=== PATIENT | male | born 1960 | race Two or more races ===

== ENCOUNTER 2024-03-07 15:50 | Emergency (ER) | payer MEDICARE, OTHER ==
[~2024-03-07] VITALS: Ht 175.3 cm; Wt 77.2 kg
[2024-03-07] MEDS ORDERED: SODIUM CHLORIDE 0.9% 1,000 ML IV ONE ×2 (16:15)
[2024-03-07 16:25] VITALS: BP 128/53; PULSE 89; RESP 18; O2SAT 100
[2024-03-07 18:11] LABS: Basophils # (auto) 0 10 ^3/uL (0-0.2); Eosinophils # (auto) 0 10 ^3/uL (0-0.8); Mean Corpuscular Volume 96.2 fL (80.0-100.0); Monocytes # (auto) 0.4 10 ^3/uL (0-1.3)
[2024-03-07 18:12] LABS: Basophils % (auto) 0.2 % (0.0-2.0); Hematocrit 54.2 % (41.0-53.0); Hemoglobin 17.9 g/dL (13.5-17.5); Lymphocytes # (auto) 0.9 10 ^3/uL (0.4-5.4); Lymphocytes % (auto) 6.7 % (10.0-50.0); Mean Corpuscular Hemoglobin 31.7 pg (28.0-32.0); Neutrophils # (auto) 12.6 10 ^3/uL (1.6-8.6); Neutrophils % (auto) 90.1 % (37.0-80.0); Nucleated Red Blood Cells % 0.1 %; Red Blood Cells 5.63 10^6/uL (4.5-5.90); Red Cell Distribution Width 14.2 % (11.8-14.3)
[2024-03-07 18:18] LABS: Chloride 104 mmol/L (98-107); Potassium 4.3 mmol/L (3.5-5.1); Sodium 139 mmol/L (136-145)
[2024-03-07 18:19] LABS: Anion Gap 14 (5-15); Calcium 9.8 mg/dL (8.5-10.1); Carbon Dioxide 21 mmol/L (20-30)
[2024-03-07 18:24] LABS: BUN/Creatinine Ratio 10.8 (10.0-20.0); Blood Urea Nitrogen 24 mg/dL (9-23); Glucose 131 mg/dL (74-106)
== END 2024-03-07 22:41 | disposition left against medical advice (07) ==
LOC: ER 15:50 → EDBD 15:50 → ER 22:41
DX: R10.9 Unspecified abdominal pain (principal); I10 Essential (primary) hypertension; F17.210 Nicotine dependence, cigarettes, uncomplicated
CPT/HCPCS: 36415; 74176; 80048; 85025